=== PATIENT | male | born 1975 | race Caucasian/White ===

== ENCOUNTER 2017-11-27 08:43 | Emergency (ER) | payer OTHER ==
[~2017-11-27] VITALS: Ht 172.7 cm; Wt 86.6 kg
[2017-11-27 09:12] LABS: HEMATOCRIT 46.2 % (38.0-50.0); MCH 32.8 PG (29.0-34.0); MCHC 36.8 G/DL (30.0-36.0); PLATELET COUNT 246 K/uL (156-360); RBC DIS.WIDTH-CV 11.8 % (11.8-14.6); RBC DIS.WIDTH-SD 37.8 % (39-53); RED BLOOD COUNT 5.19 M/uL (4.00-5.50)
[2017-11-27 09:21] LABS: APPEARANCE CLEAR ((CLEAR)); BILIRUBIN NEGATIVE; BLOOD SMALL; COLOR YELLOW ((YELLOW)); GLUCOSE (STRIP) NEGATIVE; KETONES NEGATIVE; LEUKOCYTES NEGATIVE; NITRITE NEGATIVE; PROTEIN (STRIP) 30; SPECIFIC GRAVITY 1.019 (1.000-1.030); UROBILINOGEN 0.2 MG/DL (0.2-1.0)
[2017-11-27 09:22] LABS: ALBUMIN 4.7 g/dL (3.2-4.8); CHLORIDE 102 mEq/L (99-109); POTASSIUM 4.2 mEq/L (3.7-5.4); SODIUM 142 mEq/L (136-147)
[2017-11-27 09:23] LABS: BACTERIA 1+ /HPF; EPITHELIAL CELLS RARE /HPF; HYALINE CASTS 0-5 /LPF; MUCUS 2+ /LPF; WHITE BLOOD CELLS 0-5 /HPF (0-5)
[2017-11-27 09:25] LABS: GLUCOSE 100 mg/dL (70-99); TOTAL PROTEIN 8.5 g/dL (6.4-8.3)
[2017-11-27 09:26] LABS: TOTAL BILIRUBIN 0.7 mg/dL (0.0-1.0)
[2017-11-27 09:28] LABS: ALKALINE PHOSPHATASE 88 IU/L (3-129); CREATININE 1.2 mg/dL (0.6-1.3)
[2017-11-27 09:29] LABS: GFR ESTIMATE (CALCULATED) > 59 mL/min/ (58.99-99999); UREA NITROGEN (BUN) 12 mg/dL (9-23)
[2017-11-27 09:30] LABS: AST (GOT) 22 IU/L (2-34)
[2017-11-27 09:31] LABS: ALT (GPT) 18 IU/L (3-49)
[2017-11-27] MEDS ORDERED: PERCOCET 5/31 TABLET PO (10:07)
[2017-11-27] MEDS ORDERED: ZOFRAN ODT4 MG PO (10:07)
[2017-11-27] MEDS ORDERED: FLOMAX0.4 MG PO (10:07)
[2017-11-27 10:16] VITALS: BP 122/87
== END 2017-11-27 10:17 | disposition home or self-care (01) ==
LOC: EME 08:43
PROVIDERS: Nurse Practitioner Family
DX: N20.0 Calculus of kidney (principal)
CPT/HCPCS: 74176; 80053; 81003; 85027; 99281; 99284